=== PATIENT | female | born 1935 | race Caucasian/White ===

== ENCOUNTER 2016-12-02 04:15 | Emergency (ER) | payer MEDICARE, OTHER ==
[2016-12-02 03:33] LABS: BASOPHILS 0.3 %; BASOPHILS ABSOLUTE 0.02 10/3/uL (0.0-0.16); EOSINOPHILS ABSOLUTE 0.22 10/3/uL (0.0-0.53); HEMOGLOBIN 12.5 g/dL (12.0-16.0); IMMATURE GRANULOCYTES 0.1 %; IMMATURE GRANULOCYTES ABSOLUTE 0.01 10/3/uL (0.0-0.11); LYMPHOCYTES 47.1 %; LYMPHOCYTES ABSOLUTE 3.44 10/3/uL (0.67-4.30); MEAN CORPUS HGB CONC 32.9 g/dL (32.0-36.0); MEAN CORPUSCULAR HEMOGLOB 30.4 pg (26.0-34.0); MEAN PLATELET VOLUME 11.6 fL (9.2-13.0); MONOCYTES 10.9 %; NEUTROPHILS 38.6 %; NEUTROPHILS ABSOLUTE 2.82 10/3/uL (2.02-8.40); PLATELET COUNT 248 10/3/uL (150-400); RBC DISTRIBUTION WIDTH 15.5 % (12.0-16.0); RED CELL COUNT 4.11 10/6/uL (4.0-5.6)
[2016-12-02 03:39] LABS: ER CBC TAT 0 Hrs 00 Mins; MANUAL DIFF NO %; MEAN CORPUSCULAR VOLUME 92.5 fL (80-100); WHITE BLOOD CELLS 7.3 10/3/uL (4.5-10.5)
[2016-12-02 03:51] LABS: BUN (BLOOD UREA NITROGEN) 17 MG/DL (6-23); CALCIUM, SERUM 8.5 MG/DL (8.5-10.4); CHEST PAIN PROFILE TAT 0 Hrs 22 Mins; CHLORIDE, SERUM 111 MMOL/L (96-112); CO2 (CARBON DIOXIDE) 32 MMOL/L (24-34); CREATININE 0.87 MG/DL (0.55-1.02); GFR AFRICAN AMERICAN 72 ML/MIN (>=60); GFR NON AFRICAN AMERICAN 62 ML/MIN (>=60); GLUCOSE, SERUM 91 MG/DL (60-99); POTASSIUM, SERUM 4.1 MMOL/L (3.5-5.3); SODIUM, SERUM 147 MMOL/L (135-148); TROPONIN I <0.02 NG/ML (<0.05)
[2016-12-02 03:51] LABS: PARTIAL THROMBO TIME 29.4 SEC (22.5-37.2); PROTIME (NOT ORD) 12.7 SEC (12.0-14.5)
[2016-12-02 03:53] LABS: CARBOXYHEMOGLOBIN 1.1 % (0-3); HEMOBLOGIN CONTENT 12.7 G/DL (12-16); INSTRUMENT SERIAL # 8087; METHEMOGLOBIN 0.3 % (0-3); O2 CONTENT 16.4 VOL% (18-24); PCO2 (CO2 TENSION) 43 MMHG (35-45); PO2 (O2 TENSION) 66 MMHG (79-93); SAMPLE Arterial; pH 7.41 (7.37-7.43)
[~2016-12-02 04:15] MED LIST: ACCUNEB INH; ADVAIR; ADVAIR100 INH; ADVAIR250 INH; ALLEGRA180 PO; ASAB PO; BENTYL10 PO; BENZONATATE; BUSPAR5 PO; CALTRA600D PO; CARTIA XT180 MG/24 PO; DELESTROGEN40 MG/ML IM; DETROL2 PO; DITROXL5 PO; DURICEF PO; EVISTA60 PO; FERROUS SULF325 M1 PO; FLOVENT220 INH; HALF81 PO; IRON325 MG PO; K500 PO; LIPITOR40 PO; LUMIGAN OPH; LUMIGAN2.5 ML OPH; LYRICA; LYRICA150 MG PO; MOBIC15 MG PO; MYRBETRIQ50 MG PO; NEUR100 PO; NITROQUICK0.4 MG SL; NITROSTAT0.4 MG SL; PAXIL CR25 MG PO; PAXIL30 MG PO; PAXIL40 MG PO; PRESERVISION A1 EAC1 PO; PRESERVISION PO; PRESERVISION VIT PO; PROAIR HFA INH; PROBIOTIC PO; PROTONIX PO; REQUIP1 PO; REQUIP2 PO; RESTASIS OPH; SPIRIVA INH; SYMBICORT 160/41 INH INH; THERGRANM PO; ULTRAM50 PO; VENTOLIN HFA INH; ZOCOR40 PO; [UNRECOGNIZED DRUG - REMARK]
== END 2016-12-02 06:00 | disposition home or self-care (01) ==
LOC: ER 04:15
PROVIDERS: Specialist
DX: J44.1 Chronic obstructive pulmonary disease with (acute) exacerbation (principal); J32.9 Chronic sinusitis, unspecified; Z87.891 Personal history of nicotine dependence; J45.909 Unspecified asthma, uncomplicated; J44.9 Chronic obstructive pulmonary disease, unspecified; Z95.5 Presence of coronary angioplasty implant and graft; Z88.5 Allergy status to narcotic agent; Z79.899 Other long term (current) drug therapy
CPT/HCPCS: 36600; 71010; 80048; 82805; 83735; 83880; 84484; 85025; 85610; 85730; 93005; 94640; 96374; 96375; 99285; A9270-GY; J2930